=== PATIENT | male | born 1990 | race Caucasian/White ===

== ENCOUNTER 2022-08-23 19:16 | Emergency (ER) | payer OTHER ==
[~2022-08-23] VITALS: Ht 185.4 cm; Wt 81.6 kg
[~2022-08-23 19:16] MED LIST: CEPH500C PO
[2022-08-23] MEDS ORDERED: LACTATED RINGERS 1,000 ML IV ONE (19:45)
--- NOTE | 2022-08-23 19:46 | ED GI ---
General Chief Complaint: Abdominal/GI Problems Stated Complaint: DIARRHEA Source of Information: Patient History of Present Illness Date Seen by Provider: Aug 23, 2022 Time Seen by Provider: 19:26 Initial Comments PT ARRIVES VIA POV FROM HOME PT STATES HE HAS HAD DIARRHEA X 1 WEEK--HAS HAD 8-9 STOOLS TODAY. HE IS ALSO HAVING GENERALIZED ABDOMINAL PAIN OFF AND ON WELL NO BLACK/BLOODY/TARRY STOOLS NO NAUSEA/VOMITING NO FEVER NO DIZZINESS OR SYNCOPE HAS HAD DECREASED URINE OUTPUT HE HAS BEEN EATING AND DRINKING OK--HE HAD YOGURT, EGGS, BAGEL, BANANA FOR BREAKFAST, AND TURKEY/CHEESE/PICKLE SANDWICH FOR LUNCH. HE HAS HAD AT LEAST 90 OZ OF WATER TODAY SYMPTOMS BEGAN ON WAKING ON 08/15/22, AFTER BEING AT A BBQ ALL DAY ON 08/14/22. HE IS CONCERNED THAT HE MIGHT HAVE EATEN CONTAMINATED FOOD, IT HAD BEEN SITTING OUTSIDE ALL DAY HE IS NOT AWARE OF ANYONE ELSE BEING ILL. HE WENT TO [facility] LAST PM PM FOR THIS PROBLEM,. NO TESTS WERE DONE, BUT HE WAS SENT HOME WITH A "HAT" TO COLLECT STOOL. HE BRINGS A STOOL SPECIMEN WITH HIM THAT WAS COLLECTED JUST PRIOR TO ARRIVAL. PT HAS CHRONIC BACK PAIN AND TAKES 300 MG ALEVE DAILY HE HAS BEEN TAKING PEPTO-BISMOL MULTIPLE TIMES OVER THE LAST WEEK FOR THIS CURRENT PROBLEM HE DOES NOT HAVE ANY OTHER CHRONIC MEDICAL PROBLEMS AND DOES NOT TAKE ANY DAILY PRESCRIPTION MEDICATION HE HAS NOT HAD PRIOR GI PROBLEMS, AND HAS NOT HAD ANY PRIOR [id number]. HE SMOKES AT LEAST 1 PPD OF CIGARETTES, DRINKS ALCOHOL A COUPLE OF TIMES A WEEK, DENIES DRUG USE PCP; [facility] HAS NEW PT APPOINTMENT 09/16/22 AT THE DC IN [place]--HE HAS NEVER ESTABLISHED CARE WITH THE DC PRIOR TO THIS Allergies and Home Medications Allergies Coded Allergies: No Known Drug Allergies (Unverified , 08/23/14) Patient Home Medication List Home Medication List Reviewed: Yes Cephalexin Monohydrate (Cephalexin) 500 Mg Capsule, 1 EACH PO TID Prescribed by: MAZIN MONTALVO on 08/23/14 072 Hyoscyamine Sulfate (Levsin-Sl) 0.125 Mg Tab.subl, 0.25 MG SL Q4H Prescribed by: WISAM CORONA on 08/23/222117 Lactobacillus Acidophilus (Acidophilus Lactobacillus) 1 Billion Unit/Gram Powder, 1 GM MC QID Prescribed by: WISAM CORONA on 08/23/222117 Ondansetron (Ondansetron Odt) 4 Mg Tab.rapdis, 4 MG PO Q4H Prescribed by: WISAM CORONA on 08/23/222117 Review of Systems Review of Systems Constitutional: no symptoms reported EENTM: No Symptoms Reported Respiratory: No Symptoms Reported Cardiovascular: No Symptoms Reported Gastrointestinal: See HPI, Abdominal Pain, Diarrhea Genitourinary: See HPI Musculoskeletal: see HPI Skin: no symptoms reported Psychiatric/Neurological: No Symptoms Reported Endocrine: No Symptoms Reported Past Eidujrl-Qzaoia-Yaghnk Hx Patient Social History Tobacco Use?: Yes Tobacco type used: Cigarettes Smoking Status: Current Everyday Smoker Substance use?: No Alcohol Use?: Yes Alcohol Frequency: Couple times a week Immunizations Up To Date Tetanus Booster (TDap): More than 5yrs Seasonal Allergies Seasonal Allergies: No Past Medical History Surgeries: No Respiratory: No Cardiac: No Neurological: No Reproductive Disorders: No Sexually Transmitted Disease: No Genitourinary: No Gastrointestinal: No Musculoskeletal: Yes Chronic Back Pain Endocrine: No HEENT: No Cancer: No Psychosocial: No Integumentary: No Blood Disorders: No Physical Exam Vital Signs Vital Signs - First Documented 08/23/22 08/23/22 19:25 21:14 Temp 36.7 Pulse 71 Resp 20 B/P (MAP) 146/89 (108) Pulse Ox 98 O2 Delivery Room Air Capillary Refill : Height/Weight/BMI Height: 6'1" Weight: 175lbs. oz. 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, no motor/sensory deficits, alert, normal mood/affect, oriented x 3 Skin: normal color, warm/dry; No rash Focused Exam Lactate Level 08/23/22 19:34: Lactic Acid Level 0.75 Lactic Acid Level Laboratory Tests Test 08/23/22 19:34 Lactic Acid Level 0.75 MMOL/L (0.50-2.00) Progress/Results/Core Measures Results/Orders Lab Results Laboratory Tests Test 08/23/22 19:34 08/23/22 20:55 Range/Units White Blood Count 8.5 4.3-11.0 10^3/uL Red Blood Count 4.44 4.30-5.52 10^6/uL Hemoglobin 14.0 13.3-17.7 g/dL Hematocrit 39 L 40-54 % Mean Corpuscular Volume 88 80-99 fL Mean Corpuscular Hemoglobin 32 25-34 pg Mean Corpuscular Hemoglobin Concent 36 32-36 g/dL Red Cell Distribution Width 11.9 10.0-14.5 % Platelet Count 240 130-400 10^3/uL Mean Platelet Volume 10.3 9.0-12.2 fL Immature Granulocyte % (Auto) 0 % Neutrophils (%) (Auto) 62 42-75 % Lymphocytes (%) (Auto) 25 12-44 % Monocytes (%) (Auto) 8 0-12 % Eosinophils (%) (Auto) 3 0-10 % Basophils (%) (Auto) 1 0-10 % Neutrophils # (Auto) 5.2 1.8-7.8 10^3/uL Lymphocytes # (Auto) 2.2 1.0-4.0 10^3/uL Monocytes # (Auto) 0.7 0.0-1.0 10^3/uL Eosinophils # (Auto) 0.2 0.0-0.3 10^3/uL Basophils # (Auto) 0.1 0.0-0.1 10^3/uL Immature Granulocyte # (Auto) 0.0 0.0-0.1 10^3/uL Erythrocyte Sedimentation Rate 5 0-15 MM/HR Sodium Level 140 135-145 MMOL/L Potassium Level 3.9 3.6-5.0 MMOL/L Chloride Level 108 H 98-107 MMOL/L Carbon Dioxide Level 24 21-32 MMOL/L Anion Gap 8 5-14 MMOL/L Blood Urea Nitrogen 16 7-18 MG/DL Creatinine 0.84 0.60-1.30 MG/DL Estimat Glomerular Filtration Rate 117 BUN/Creatinine Ratio 19 Glucose Level 122 H 70-105 MG/DL Lactic Acid Level 0.75 0.50-2.00 MMOL/L Calcium Level 9.6 8.5-10.1 MG/DL Corrected Calcium 9.2 8.5-10.1 MG/DL Magnesium Level 2.0 1.6-2.4 MG/DL Total Bilirubin 1.3 H 0.1-1.0 MG/DL Aspartate Amino Transf (AST/SGOT) 27 5-34 U/L Alanine Aminotransferase (ALT/SGPT) 40 0-55 U/L Alkaline Phosphatase 41 40-136 U/L C-Reactive Protein High Sensitivity 0.12 0.00-0.50 MG/DL Total Protein 7.1 6.4-8.2 GM/DL Albumin 4.5 3.2-4.5 GM/DL Amylase Level 62 25-125 U/L Lipase 33 8-78 U/L Urine Color YELLOW Urine Clarity CLEAR Urine pH 5.5 5-9 Urine Specific Mon[place] 1.010 L 1.016-1.022 Urine Protein NEGATIVE NEGATIVE Urine Glucose (UA) NEGATIVE NEGATIVE Urine Ketones NEGATIVE NEGATIVE Urine Nitrite NEGATIVE NEGATIVE Urine Bilirubin NEGATIVE NEGATIVE Urine Urobilinogen 0.2 < = 1.0 MG/DL Urine Leukocyte Esterase NEGATIVE NEGATIVE Urine RBC (Auto) NEGATIVE NEGATIVE Urine RBC NONE /HPF Urine WBC NONE /HPF Urine Squamous Epithelial Cells NONE /HPF Urine Crystals NONE /LPF Urine Bacteria NEGATIVE /HPF Urine Casts NONE /LPF Urine Mucus NEGATIVE /LPF Urine Culture Indicated NO My Orders Orders - WISAM CORONA DO Ed Iv/Invasive Line Start (08/23/22 19:33) Monitor-Rhythm Ecg Trace Only (08/23/22 19:33) Ct Abdomen/Pelvis W (08/23/22 19:33) Amylase (08/23/22 19:33) Cbc With Automated Diff (08/23/22 19:33) Comprehensive Metabolic Panel (08/23/22 19:33) Hs C Reactive Protein (08/23/22 19:33) Lactic Acid Analyzer (08/23/22 19:33) Lipase (08/23/22 19:33) Magnesium (08/23/22 19:33) Ua Culture If Indicated (08/23/22 19:33) Blood Culture (08/23/22 19:33) Stool Culture (08/23/22 19:33) Fecal Wbc (08/23/22 19:33) Rotavirus Antigen (08/23/22 19:33) Erythrocyte Sedimentation Rate (08/23/22 19:33) Parasite Scrn Stool Giard Cryp (08/23/22 19:33) Parasite Complete Exam Stool (08/23/22 19:33) Ed Iv/Invasive Line Start (08/23/22 19:33) Lactated Ringers (Lr 1000 Ml Iv Solution (08/23/22 19:45) C Difficile Ag + Toxin A/B. (08/23/22 19:33) Isolation Central Supply Req (08/23/22 19:33) Iohexol Injection (Omnipaque 350 Mg/Ml 1 (08/23/22 20:15) Ns (Ivpb) (Sodium Chloride 0.9% Ivpb Bag (08/23/22 20:15) Rx-Hyoscyamine Tab (Rx-Levsin Sl) (08/23/22 21:13) Rx-Ondansetron Po (Rx-Zofran Po) (08/23/22 21:13) Medications Given in ED Current Medications Medications Dose Ordered Sig/Xochilt Route Start Time Stop Time Status Last Admin Dose Admin Iohexol 100 ml ONCE ONCE IV 08/23/22 20:15 08/23/22 20:16 DC 08/23/22 20:19 80 ML Lactated Ringer's 1,000 ml @ 0 mls/hr Q0M ONCE IV 08/23/22 19:45 08/23/22 19:46 DC 08/23/22 20:08 1,000 MLS/HR Sodium Chloride 100 ml ONCE ONCE IV 08/23/22 20:15 08/23/22 20:16 DC 08/23/22 20:19 80 ML Vital Signs/I&O 08/23/22 08/23/22 19:25 21:14 Temp 36.7 Pulse 71 60 Resp 20 B/P (MAP) 146/89 (108) 126/74 Pulse Ox 98 99 O2 Delivery Room Air Room Air Progress Progress Note : Progress Note VITALS ON ARRIVAL: TEMP 36.7, HR 75, BP 146/89, RR 13, O2 SAT 98% ON ROOM AIR. GIVEN: -IV FLUIDS LABS INCLUDING CBC, CMP, AMYLASE/LIPASE, UA, WELL STOOL STUDIES ORDERED, IN ADDITION TO CT SCAN OF ABDOMEN/PELVIS LABS NORMAL. STOOL STUDIES PENDING CT DOES NOT REVEAL ANY INFLAMMATORY CHANGES VITALS STABLE, AFEBRILE NO PAIN OR DIARRHEA OR ANY OTHER SYMPTOM DURING ER STAY DISCUSSED ANTICIPATED COURSE, SYMPTOMATIC TREATMENT, DIET, MEDICATIONS, NEED FOR FOLLOW UP AND RETURN PRECAUTIONS. Diagnostic Imaging Comments CT ABDOMEN/PELVIS--PER RADIOLOGIST REPORT AT 2100 Reviewed: Reviewed by Me Departure Impression Primary Impression: Diarrhea Disposition: 01 HOME, SELF-CARE Condition: Stable Departure-Patient Inst. Decision time for Depature: 21:10 Referrals: NO,LOCAL PHYSICIAN (PCP/Family) Primary Care Physician Patient Instructions: Diarrhea, Adult ED Add. Discharge Instructions: CLEAR LIQUIDS--WATER, BROTH, JELLO, GATORADE--DRINK EQUAL AMOUNTS OF WATER AND GATORADE. DRINK ENOUGH SO YOU ARE URINATING EVERY 2 HOURS WHILE AWAKE BRATS DIET--BANANAS, RICE, APPLESAUCE, TOAST, SALTINES--NO OTHER FOODS UNTIL YOU ARE COMPLETELY WELL FOLLOW UP WITH [facility] IF NO BETTER RETURN TO ER IF YOUR SYMPTOMS WORSEN All discharge instructions reviewed with patient and/or family. Voiced understanding. Scripts Ondansetron (Ondansetron Odt) 4 Mg Tab.rapdis 4 MG PO Q4H for Nausea/Vomiting, #10 TAB Prov: WISAM CORONA DO 08/23/22 Hyoscyamine Sulfate (Levsin-Sl) 0.125 Mg Tab.subl 0.25 MG SL Q4H, #10 TAB Prov: WISAM CORONA DO 08/23/22 Lactobacillus Acidophilus (Acidophilus Lactobacillus) 1 Billion Unit/Gram Powder 1 GM MC QID for 10 Days, #1 EA Prov: WISAM CORONA DO 08/23/22 WISAM CORONA DO Aug 23, 2022 19:46
[2022-08-23 19:48] LABS: BASOPHILS # (AUTO) 0.1 10^3/uL (0.0-0.1); BASOPHILS % (AUTO) 1 % (0-10); EOSINOPHILS # (AUTO) 0.2 10^3/uL (0.0-0.3); EOSINOPHILS % (AUTO) 3 % (0-10); HEMATOCRIT 39 % (40-54); LYMPHOCYTES # (AUTO) 2.2 10^3/uL (1.0-4.0); LYMPHOCYTES % (AUTO) 25 % (12-44); MEAN CORPUSCULAR HEMOGLOBIN 32 pg (25-34); MEAN CORPUSCULAR HGB CONC 36 g/dL (32-36); MEAN CORPUSCULAR VOLUME 88 fL (80-99); MEAN PLATELET VOLUME 10.3 fL (9.0-12.2); MONOCYTES # (AUTO) 0.7 10^3/uL (0.0-1.0); MONOCYTES % (AUTO) 8 % (0-12); NEUTROPHILS # (AUTO) 5.2 10^3/uL (1.8-7.8); NEUTROPHILS % (AUTO) 62 % (42-75); PLATELET COUNT 240 10^3/uL (130-400); WHITE BLOOD COUNT 8.5 10^3/uL (4.3-11.0)
[2022-08-23 19:54] LABS: ALBUMIN 4.5 GM/DL (3.2-4.5); POTASSIUM 3.9 MMOL/L (3.6-5.0)
[2022-08-23 19:55] LABS: CALCIUM 9.6 MG/DL (8.5-10.1)
[2022-08-23 19:56] LABS: TOTAL PROTEIN 7.1 GM/DL (6.4-8.2)
[2022-08-23 19:58] LABS: BILIRUBIN,TOTAL 1.3 MG/DL (0.1-1.0)
[2022-08-23 20:00] LABS: CREATININE SERUM 0.84 MG/DL (0.60-1.30)
[2022-08-23 20:08] LABS: ERYTHROCYTE SEDIMENTATION RATE 5 MM/HR (0-15)
[2022-08-23] MEDS ORDERED: IOHEXOL 350 MG/ML 100 ML (OMNIPAQUE 350) VIAL IV ONE (20:15)
[2022-08-23] MEDS ORDERED: NS 100 ML (IVPB) BAG IV ONE (20:15)
--- NOTE | 2022-08-23 20:31 | Diagnostic Imaging Report ---
INDICATION: Abdominal pain x1 week. TECHNIQUE: Multiple contiguous axial images were obtained through the abdomen and pelvis after administration of intravenous contrast. Auto Exposure Controls were utilized during the CT exam to meet ALARA standards for radiation dose reduction. All CT scans use one or more of the following dose optimizing techniques: automated exposure control, MA and/or KvP adjustment based on patient size and exam type or iterative reconstruction. There is no prior study for comparison. The visualized portions of the lung bases are clear. There were no pleural fluid collections. There is no free intraperitoneal air. The liver shows a small cyst anteriorly but is otherwise normal. The gallbladder appears normal. The spleen, adrenals, and pancreas are normal. The kidneys bilaterally show no stone or hydronephrosis or focal lesion. There is no retroperitoneal mass or adenopathy. There is no ascites. There is no pelvic mass or free fluid. There are scattered fluid-filled loops of large and small bowel which may represent gastroenteritis. There is no overt bowel obstruction. IMPRESSION: Scattered fluid-filled loops of large and small bowel are present which may represent gastroenteritis. No overt bowel obstruction or abscess. The appendix is not well seen but there is no inflammatory reaction in its expected location. Dictated by: Dictated on workstation # [id number]
[2022-08-23 21:02] LABS: BILIRUBIN,URINE NEGATIVE (NEGATIVE); CLARITY,URINE CLEAR; COLOR,URINE YELLOW; GLUCOSE, URINE (UA) NEGATIVE (NEGATIVE); KETONES,URINE NEGATIVE (NEGATIVE); LEUKOCYTE ESTERASE ,URINE NEGATIVE (NEGATIVE); NITRITE,URINE NEGATIVE (NEGATIVE); PH,URINE 5.5 (5-9); PROTEIN,URINE NEGATIVE (NEGATIVE)
[2022-08-23] MEDS ORDERED: RX-HYOSCYAMINE 0.125 MG SL (LEVSIN) PPK#6 SL STA (21:13)
[2022-08-23] MEDS ORDERED: RX-ONDANSETRON 4 MG ODT (ZOFRAN) PPK #4 PO STA (21:13)
[2022-08-23 21:14] VITALS: BP 126/74
[2022-08-23] MEDS ORDERED: LACT1POW8 MC (21:18)
[2022-08-23] MEDS ORDERED: HYOS0.1283 SL (21:18)
[2022-08-23] MEDS ORDERED: ONDA4TAB11 PO (21:18)
[2022-08-23 21:31] LABS: BACTERIA,URINE NEGATIVE /HPF
== END 2022-08-23 21:34 | disposition home or self-care (01) ==
LOC: EDUNIT# 19:16 → ER 19:20
DX: R19.7 Diarrhea, unspecified (principal); G89.29 Other chronic pain; M54.9 Dorsalgia, unspecified; F17.210 Nicotine dependence, cigarettes, uncomplicated; Z79.1 Long term (current) use of non-steroidal anti-inflammatories (NSAID)
CPT/HCPCS: 36415; 74177; 80053; 81000; 82150; 83605; 83690; 83735; 85025; 85652; 86141; 87015; 87040; 87045; 87046; 87177; 87324; 87328; 87329; 87425; 87449; 87899; 89055; 93041